=== PATIENT | female | born 1960 | race Hispanic/Latino ===

== ENCOUNTER 2023-10-08 09:17 | Day surgery (SDC) | payer BC ==
[2023-10-06 14:19] VITALS: BMI 39.4
[2023-10-08] MEDS ORDERED: Lidocaine 1% PF 5 ML VIAL ONE (09:19)
[2023-10-08] MEDS ORDERED: PROPOFOL 20 ML ONE (09:19)
[2023-10-08] MEDS ORDERED: fentaNYL PF 100 MCG/2 ML SYRINGE ONE ×2 (09:19→11:28)
[2023-10-08] MEDS ORDERED: Rocuronium Bromide 10 MG/ML (10ML VIAL) ONE (09:20)
[2023-10-08] MEDS ORDERED: EPINEPHrine 1 MG/ML VIAL ONE (09:23)
[2023-10-08] MEDS ORDERED: Midazolam HCl 2 mg/2 ml Vial ONE (10:18)
[2023-10-08 10:25] LABS: BHCG - Serum Negative (NEGATIVE); Pregs Control Background? CLEAR/WHITE (CLR/WHITE); Pregs Control Bar Appear? YES (CONTROL BAR)
[2023-10-08 10:29] LABS: Anion Gap 18 mmol/L (10-20); BUN (Urea Nitrogen) 22 mg/dL (9.8-20.1); Calc. Creatinine Clearance 76 mL/min (70-130); Calcium 8.2 mg/dL (7.8-10.44); Carbon Dioxide 23 mmol/L (23-31); Chloride 104 mmol/L (98-107); Estimated GFR 64; Glucose 175 mg/dL (80-115); Potassium 4.1 mmol/L (3.5-5.1); Sodium 141 mmol/L (136-145)
[2023-10-08] MEDS ORDERED: SUGAMMADEX SODIUM 200 MG/2 ML VIAL ONE (10:37)
[2023-10-08] MEDS ORDERED: MINERAL OIL/WHITE PETROLATUM 3.5 GM TUBE ONE (10:50)
[2023-10-08] MEDS ORDERED: Dexamethasone 4 mg/ml Vial ONE (10:51)
[2023-10-08] MEDS ORDERED: Ondansetron PF 4 MG/2 ML Vial ONE (10:51)
[2023-10-08] MEDS ORDERED: PHENYLEPHRINE-NS 100 MCG/ML 10 ML SYRINGE ONE (10:52)
[2023-10-08] MEDS ORDERED: Metoclopramide HCl 10 MG (2 mL) VIAL ONE (11:01)
[2023-10-08] MEDS ORDERED: Albuterol HFA (OR) 200 PUFF INH ONE (11:01)
== END 2023-10-08 13:20 | disposition home or self-care (01) ==
LOC: SDC 09:17
PROVIDERS: ATTEND Specialist
PROC: 0CBS8ZX Excision of Larynx, Via Natural or Artificial Opening Endoscopic, Diagnostic (ICD-10-PCS; principal; 2023-10-08)
DX: D14.1 Benign neoplasm of larynx (principal); J38.7 Other diseases of larynx; J04.0 Acute laryngitis; Z85.850 Personal history of malignant neoplasm of thyroid; Z79.890 Hormone replacement therapy; Z79.899 Other long term (current) drug therapy
CPT/HCPCS: 80048; 84703; 85014; 88305; 88312; 93005; 93010; J0171; J1100; J2250; J2405; J2704; J2765